=== PATIENT | male | born 2005 | race African-American/Black ===

== ENCOUNTER → 2024-12-26 | Outpatient (CLI) | payer OTHER | LOC: EDBD 10:40 → M EKG 10:40 | PROVIDERS: ATTEND Student in an Organized Health Care Education/Training Program | DX: R55 Syncope and collapse (principal); Z53.9 Procedure and treatment not carried out, unspecified reason ==

== ENCOUNTER 2025-01-08 18:29 | Emergency (ER) | payer OTHER ==
[~2025-01-08] VITALS: Ht 175.3 cm; Wt 74.4 kg
[2025-01-08 20:15] LABS: BASO % 0.2 % (0.0-1.0); EOS % 0.4 % (0.0-3.0); HEMATOCRIT 45.7 % (42.0-52.0); HEMOGLOBIN 15.5 g/dl (13.5-17.5); LYMPH # 1.4 10^3/uL (1.5-5.0); LYMPH % 15.4 % (24.0-44.0); MEAN CORPUSCULAR HEMOGLOBIN 28.8 pg (27.0-33.0); MEAN CORPUSCULAR HGB CONC 33.9 g/dl (32.0-36.5); MEAN CORPUSCULAR VOLUME 84.8 fl (80.0-96.0); MONO # 0.9 10^3/uL (0.0-0.8); MONO % 9.7 % (2.0-8.0); NEUTROPHILS # 6.9 10^3/uL (1.5-8.5); NEUTROPHILS % 74.2 % (36.0-66.0); PLATELET COUNT, AUTOMATED 300 10^3/uL (150-450); RED BLOOD COUNT 5.39 10^6/uL (4.30-6.10); WHITE BLOOD COUNT 9.3 10^3/uL (4.0-10.0)
[2025-01-08 20:45] LABS: CK-MB VALUE MASS < 1.0 NG/ML (<3.6)
[2025-01-08 20:47] LABS: ALBUMIN 4.7 G/DL (3.2-5.2); ALKALINE PHOSPHATASE 92 U/L (40-129); ALT/SGPT 17 U/L (7.0-40); AST/SGOT 15 U/L (<34); BILIRUBIN,DIRECT 0.4 MG/DL (<0.4); BILIRUBIN,TOTAL 1.2 MG/DL (0.3-1.2); BLOOD UREA NITROGEN 10 MG/DL (9-23); CALCIUM LEVEL 10.3 MG/DL (8.5-10.1); CARBON DIOXIDE LEVEL 27 MMOL/L (20-31); CHLORIDE LEVEL 102 MMOL/L (98-107); CREATININE FOR GFR 0.88 MG/DL (0.70-1.30); GLUCOSE, FASTING 89 MG/DL (60-100); MAGNESIUM LEVEL 1.7 MG/DL (1.8-2.4); POTASSIUM SERUM 3.3 MMOL/L (3.5-5.1); SODIUM LEVEL 141 MMOL/L (136-145); TOTAL PROTEIN 8.2 G/DL (5.7-8.2)
[2025-01-08 20:49] LABS: FREE T4 1.63 NG/DL (0.83-1.43); THYROID STIMULATING HORMONE 1.836 uIU/ML (0.48-4.17)
[2025-01-08 20:51] LABS: CPK CREATINE PHOSPHOKINASE 232 U/L (46-171); MB/CK RELATIVE INDEX 0.43 (< OR =4)
[2025-01-08] MEDS: MAGNESIUM OXIDE 400MG TAB (MAG-OX) PO ONE (21:44)
[2025-01-08] MEDS: NS (Normal Saline) 0.9% 1,000 ML IV ONE (21:44)
[2025-01-08] MEDS: POTASSIUM CHLORIDE 10MEQ SR TABLET PO ONE (21:44)
[2025-01-08 21:56] LABS: CK-MB VALUE MASS < 1.0 NG/ML (<3.6)
[2025-01-08 21:59] LABS: CPK CREATINE PHOSPHOKINASE 210 U/L (46-171); MB/CK RELATIVE INDEX 0.47 (< OR =4)
[2025-01-08 22:45] VITALS: BP 132/79; TEMP 98.3; O2SAT 99
== END 2025-01-08 22:50 | disposition home or self-care (01) ==
LOC: EDBD 18:29 → M ED 18:29
DX: R55 Syncope and collapse (principal)

== ENCOUNTER 2025-01-31 09:46 | Emergency (ER) | payer OTHER ==
[~2025-01-31] VITALS: Ht 175.3 cm; Wt 76.7 kg
[2025-01-31 10:22] LABS: BASO % 0.6 % (0.0-1.0); EOS # 0.1 10^3/uL (0.0-0.5); EOS % 1.4 % (0.0-3.0); HEMATOCRIT 41.8 % (42.0-52.0); HEMOGLOBIN 13.9 g/dl (13.5-17.5); LYMPH # 1.9 10^3/uL (1.5-5.0); LYMPH % 28.8 % (24.0-44.0); MEAN CORPUSCULAR HGB CONC 33.3 g/dl (32.0-36.5); MEAN CORPUSCULAR VOLUME 87.1 fl (80.0-96.0); MONO # 0.6 10^3/uL (0.0-0.8); NEUTROPHILS # 3.9 10^3/uL (1.5-8.5); NEUTROPHILS % 59.9 % (36.0-66.0); PLATELET COUNT, AUTOMATED 258 10^3/uL (150-450); WHITE BLOOD COUNT 6.5 10^3/uL (4.0-10.0)
[2025-01-31 11:10] LABS: ALBUMIN 4.1 G/DL (3.2-5.2); ALKALINE PHOSPHATASE 77 U/L (40-129); ALT/SGPT 20 U/L (7.0-40); AST/SGOT 14 U/L (<34); BILIRUBIN,TOTAL 0.4 MG/DL (0.3-1.2); BLOOD UREA NITROGEN 15 MG/DL (9-23); CALCIUM LEVEL 9.2 MG/DL (8.5-10.1); CARBON DIOXIDE LEVEL 30 MMOL/L (20-31); CHLORIDE LEVEL 104 MMOL/L (98-107); GLUCOSE, FASTING 89 MG/DL (60-100); POTASSIUM SERUM 4.3 MMOL/L (3.5-5.1); SODIUM LEVEL 142 MMOL/L (136-145); TOTAL PROTEIN 7.2 G/DL (5.7-8.2)
[2025-01-31] MEDS: NS (Normal Saline) 0.9% 1,000 ML IV ONE (13:42)
[2025-01-31 14:54] VITALS: BP 120/77; TEMP 98.2; O2SAT 100
== END 2025-01-31 15:05 | disposition home or self-care (01) ==
LOC: M ED 09:46 → EDBD 09:46 → M ED 15:05
DX: E86.0 Dehydration (principal); R25.2 Cramp and spasm

== ENCOUNTER 2025-06-29 06:01 | Emergency (ER) | payer OTHER ==
[~2025-06-29] VITALS: Ht 175.3 cm; Wt 72.7 kg
[2025-06-29] MEDS ORDERED: JOBSMIS MC (08:52)
[2025-06-29 09:31] VITALS: BP 115/72; TEMP 98; O2SAT 100
== END 2025-06-29 09:33 | disposition home or self-care (01) ==
LOC: M ED 06:01
DX: J02.9 Acute pharyngitis, unspecified (principal); Z91.018 Allergy to other foods

== ENCOUNTER 2025-08-02 06:58 | Outpatient (CLI) | payer OTHER ==
[~2025-08-02] VITALS: Ht 175.3 cm; Wt 72.7 kg
[~2025-08-02 06:58] MED LIST: JOBSMIS MC
[2025-08-02 07:30] VITALS: BP 125/69; O2SAT 100
[2025-08-02] MEDS: COSYNTROPIN 0.25 MG/ML 1ML VIAL IV ONE (08:03)
[2025-08-02 09:30] VITALS: BP 108/62; O2SAT 100
== END 2025-08-02 09:30 ==
LOC: M INFU 06:58
PROVIDERS: ATTEND Student in an Organized Health Care Education/Training Program
DX: I95.1 Orthostatic hypotension (principal); Z91.013 Allergy to seafood
CPT/HCPCS: 36592; 82533; 96374; J0834

== ENCOUNTER 2025-08-31 10:03 | Emergency (ER) | payer OTHER ==
[~2025-08-31] VITALS: Ht 175.3 cm; Wt 75.7 kg
[2025-08-31 13:34] LABS: BASO # 0.0 10^3/uL (0.0-0.2); BASO % 0.7 % (0.0-1.0); EOS # 0.0 10^3/uL (0.0-0.5); EOS % 0.7 % (0.0-3.0); LYMPH # 1.7 10^3/uL (1.5-5.0); LYMPH % 29.4 % (24.0-44.0); MONO # 0.6 10^3/uL (0.0-0.8); MONO % 9.6 % (2.0-8.0); NEUTROPHILS # 3.5 10^3/uL (1.5-8.5); NEUTROPHILS % 59.6 % (36.0-66.0); PLATELET COUNT, AUTOMATED 291 10^3/uL (150-450)
[2025-08-31 13:58] LABS: CK-MB VALUE MASS < 1.0 NG/ML (<3.6)
[2025-08-31 14:00] LABS: CALCIUM LEVEL 9.4 MG/DL (8.5-10.1); CARBON DIOXIDE LEVEL 30 MMOL/L (20-31); CHLORIDE LEVEL 103 MMOL/L (98-107); CREATININE FOR GFR 0.83 MG/DL (0.70-1.30); GLOMERULAR FILTRATION RATE > 90.0 (>60); POTASSIUM SERUM 4.0 MMOL/L (3.5-5.1); SODIUM LEVEL 141 MMOL/L (136-145)
[2025-08-31 14:02] LABS: CPK CREATINE PHOSPHOKINASE 167 U/L (46-171)
[2025-08-31] MEDS: NS (Normal Saline) 0.9% 1,000 ML IV ONE (14:30)
[2025-08-31 16:32] VITALS: BP 120/68; TEMP 96.9; O2SAT 100
== END 2025-08-31 16:34 | disposition home or self-care (01) ==
LOC: M ED 10:03
DX: R07.9 Chest pain, unspecified (principal); R55 Syncope and collapse; Z91.013 Allergy to seafood

== ENCOUNTER → 2025-10-02 | Outpatient (REF) | LOC: M PLAIMG 10:12 | PROVIDERS: ATTEND Internal Medicine | DX: Z01.89 Encounter for other specified special examinations (principal) ==

== ENCOUNTER 2025-10-23 14:46 | Emergency (ER) | payer OTHER ==
[~2025-10-23] VITALS: Ht 175.3 cm; Wt 70.5 kg
[2025-10-23 18:31] VITALS: BP 116/68; TEMP 98.1; O2SAT 99
== END 2025-10-23 18:53 | disposition home or self-care (01) ==
LOC: M ED 14:46
DX: S43.082A Other subluxation of left shoulder joint, initial encounter (principal); W19.XXXA Unspecified fall, initial encounter; Y92.9 Unspecified place or not applicable; Y93.9 Activity, unspecified; Y99.1 Military activity; Z91.018 Allergy to other foods

== ENCOUNTER 2025-11-01 18:24 | Emergency (ER) | payer OTHER ==
[~2025-11-01] VITALS: Ht 175.3 cm; Wt 76.0 kg
[2025-11-01 18:26] VITALS: BP 139/76; TEMP 98.4; O2SAT 97
[2025-11-01 19:28] LABS: PLATELET COUNT, AUTOMATED 292 10^3/uL (150-450)
[2025-11-01 20:02] LABS: AMPHETAMINES LEVEL URINE NEGATIVE (NEGATIVE); BARBITURATES URINE NEGATIVE (NEGATIVE); BENZODIAZEPINES URINE NEGATIVE (NEGATIVE); CANNABINOIDS URINE NEGATIVE (NEGATIVE); COCAINE METABOLITE URINE NEGATIVE (NEGATIVE); METHADONE URINE NEGATIVE (NEGATIVE); OPIATES URINE NEGATIVE (NEGATIVE); PHENCYCLIDINE URINE NEGATIVE (NEGATIVE)
[2025-11-01 20:17] LABS: ETHYL ALCOHOL (ETHANOL) < 0.003 % (0.000-0.010)
[2025-11-01 20:19] LABS: ALT/SGPT 18 U/L (7.0-40); AST/SGOT 17 U/L (<34); CALCIUM LEVEL 9.1 MG/DL (8.5-10.1); CARBON DIOXIDE LEVEL 29 MMOL/L (20-31); CHLORIDE LEVEL 101 MMOL/L (98-107); CREATININE FOR GFR 0.90 MG/DL (0.70-1.30); GLOMERULAR FILTRATION RATE > 90.0 (>60); POTASSIUM SERUM 4.1 MMOL/L (3.5-5.1); SALICYLATE LEVEL < 3.0 MG/DL (<30); SODIUM LEVEL 138 MMOL/L (136-145)
[2025-11-01] MEDS ORDERED: MIDO2.5T3 PO (20:47)
== END 2025-11-01 22:22 | disposition home or self-care (01) ==
LOC: M ED 18:24
DX: Z04.6 Encounter for general psychiatric examination, requested by authority (principal); R55 Syncope and collapse; Z91.013 Allergy to seafood; Z79.899 Other long term (current) drug therapy